=== PATIENT | male | born 1950 | race Caucasian/White ===

== ENCOUNTER 2024-02-02 14:47 | Observation (INO) | payer OTHER, SELFPAY ==
[2024-02-02 15:38] VITALS: BP 153/79; PULSE 98; RESP 18; TEMP 36.3; O2SAT 97; BMI 25.3
--- NOTE | 2024-02-02 15:38 | ED.GENADULT ---
HPI - General Adult General Chief complaint: Arrhythmia/Palpitations Stated complaint: Sent by PCP Time Seen by Provider: 02/02/24 16:54 Source: patient Mode of arrival: ambulatory Limitations: no limitations History of Present Illness HPI narrative: Patient is a 74-year-old male who presents to the emergency department for evaluation, coming from his primary care doctor's office. He had a routine appointment today, where he underwent an EKG was found to have new onset atrial fibrillation. Patient is entirely asymptomatic. He admits to no physical complaints at this time and has a completely negative review of systems. He is unable to tell me his past medical history aside from hypertension but he does admit to being on 4 medications daily of which he does not know the name of. Related Data Home Medications ?Medication ?Instructions ?Recorded ?Confirmed hydrochlorothiazide 25 mg tablet 25 mg PO DAILY 02/02/24 02/02/24 metoprolol succinate 50 mg 50 mg PO DAILY 02/02/24 02/02/24 tablet,extended release 24 hr nifedipine 60 mg tablet,extended 60 mg PO DAILY 02/02/24 02/02/24 release 24 hr potassium chloride 10 mEq 10 meq PO Q48H 02/02/24 02/02/24 tablet,extended release(part/cryst) simvastatin 40 mg tablet 40 mg PO DAILY 02/02/24 02/02/24 Allergies Allergy/AdvReac Type Severity Reaction Status Date / Time No Known Allergies Allergy Verified 02/02/24 15:41 Review of Systems Review of Systems: Yes all other systems are reviewed and are negative PMFSH Past Medical History Attestation statement: The following information was validated with the patient. Source: old records reviewed Medical History Mixed hyperlipidemia Hypertension Social History Social History Alcohol intake: current Alcohol intake frequency: 0-2 drinks per day Alcohol type: beer Smoked in Last 30 Days: No Use of substances other than those prescribed or required for medical reasons: No Advance Directives: No Advance Directives Information Provided: No Physical Exam ED Vital Signs: Vital Signs - 24 hr 02/02/24 15:38 02/02/24 17:43 02/02/24 18:51 Temperature 97.4 F 98.1 F Pulse Rate 98 107 H 88 Respiratory Rate 18 16 12 Blood Pressure 153/79 H 152/83 H 140/86 H Pulse Oximetry 97 94 95 Oxygen Delivery Method Room Air Room Air Room Air 02/02/24 20:15 Temperature 97.9 F Pulse Rate 101 H Respiratory Rate 12 Blood Pressure 134/96 H Pulse Oximetry 98 Oxygen Delivery Method Room Air BMI result Body Mass Index 25.3 Appearance: Alert.?Oriented to person, place and time. No acute distress.?Normal affect. Eyes: Pupils equal, round and reactive to light.? ENT: Pharynx normal.?? Neck: Normal inspection.? Neck supple.?? CVS: Heart sounds normal. Normal heart rate and rhythm.? Pulses normal.?? Respiratory: No respiratory distress.? Lung sounds clear to auscultation bilaterally?? Abdomen: Soft and non-tender. Normoactive bowel sounds. ? Skin: Skin warm and dry.? Normal skin color.? ?? Extremities: No lower extremity edema.? No calf ttp? Neuro: Moves all extremities spontaneously. Sensation intact bilaterally. CN II-XII intact. No focal neuro deficits. Ambulates with normal steady gait. Course Course Course Narrative: This is a Rapid Medical Exam performed in triage by Nelly Campoverde PA-C. Full HPI, ROS and PE to be performed by primary ED provider. 74 year-old M w/ PMHx HTN presenting to the ED sent in by PCP for new onset A.fib noted on EKG in the office today when he went in for regular checkup. denies sx including CP/SOB, THOMPSON, dizziness/lightheadedness PE: nontoxic, ambulating w/steady gait. HR 80-110 in triage Plan: EKG, labs ordered Reevaluation(s) Reevaluation #1: At the time of evaluation he is noted to have Varying rate up to 120s, concern for RVR at this time a low not initially noted on EKG, repeat EKG to be obtained. Patient's daughter in for a free at this time but he typically consumes approximately 12 pack of beers daily. I had a conversation with patient, he denies any history of alcohol withdrawal symptoms or withdrawal seizures. He states that he can go days without requiring drink, does not awake feeling is that he needs to drink. Time: 17:25 Reevaluation #2: Patient received 2 doses of metoprolol IV initially 2.5 mg followed by 5 mg. At rest remains rate controlled with pulse below 105, with exertion is noted to have rate going as high as 140. Discussed these findings with patient, recommend inpatient admission for rate control, he was started on Eliquis. Spoke with Dr. Cui who accepts patient for admission Time: 21:22 Medications Administered Discontinued Medications Generic Name Dose Route Start Last Admin Trade Name Dejanq PRN Reason Stop Dose Admin Apixaban 5 mg 02/02/24 20:02 02/02/24 20:14 Apixaban 5 Mg Tablet PO 02/02/24 20:03 5 mg ONCE ONE Administration Metoprolol Tartrate 2.5 mg 02/02/24 17:40 02/02/24 17:45 Metoprolol Tartrate 5 Mg/5 Ml Vial IVPUSH 02/02/24 17:41 2.5 mg ONCE ONE Administration Protocol Metoprolol Tartrate 5 mg 02/02/24 20:01 02/02/24 20:15 Metoprolol Tartrate 5 Mg/5 Ml Vial IVPUSH 02/02/24 20:02 5 mg ONCE ONE Administration Protocol Medical Decision Making Medical Decision Making MDM Narrative: Patient is a 74 old male presents emergency department from primary care office for asymptomatic new onset atrial fibrillation as per HPI. Overall he appears well, nontoxic, afebrile. He is speaking clear full sentences. No distress. Will obtain CBC to evaluate for leukocytosis/ anemia, CMP and lipase to evaluate for abnormal electrolytes /abnormal renal function/ abnormal hepatic/biliary function, EKG and troponin to evaluate for ischemia/ACS. YE Vasc score 2, will initiate anticoagulants and educated on risks associated with use. Differential Diagnosis Differential Diagnoses: The differential diagnosis associated with the presentation includes (Atrial fibrillation, atrial flutter, atrial fibrillation with RVR) Admission/Observation Consideration of admission/observation: Escalation of care including admission/observation considered (See course narrative) Consult Healthcare Provider Management of the patient was discussed with: Hospitalist (See course narrative) Lab Data [facility] Lab Attestation statement: I reviewed the patient's lab results. CBC is without leukocytosis anemia or thrombocytopenia. No electrolyte derangement. No MARY. LFTs within normal range. High sensitive troponin below detectable limits. BNP not consistent with CHF. 02/02/24 16:01 02/02/24 16:01 Labs: Lab Results 02/02/24 Range/Units 16:01 WBC 7.6 (4.8-10.8) X10*3/uL RBC 4.98 (4.60-5.80) X10*6/uL Hgb 15.4 (14.0-18.0) g/dl Hct 43.8 (42.0-52.0) % MCV 88.0 (80.0-98.0) fL MCH 30.9 (27.0-33.0) pg MCHC 35.2 (31.0-36.0) g/dl RDW 12.9 (11.0-16.0) % Plt Count 221 (160-400) X10*3/uL MPV 11.7 (9.4-12.4) fL Immature Gran % (Auto) 0.3 (0.0-0.4) % Neut % (Auto) 56.6 (45-73) % Lymph % (Auto) 28.6 (20-40) % [place] % (Auto) 10.3 (2-11) % Eos % (Auto) 3.4 (0-4) % Baso % (Auto) 0.8 (0-2) % Lymph # (Auto) 2.2 (1.2-4.9) X10*3/uL [place] # (Auto) 0.8 (0.1-1.2) X10*3/uL Eos # (Auto) 0.3 (0.0-0.4) X10*3/uL Baso # (Auto) 0.1 (0.0-0.2) X10*3/uL Abs Immat Gran (auto) 0.02 (0.00-0.03) X10*3/uL Absolute Neuts (auto) 4.3 (2.0-8.3) x10*3/uL Absolute Nucleated RBC 0.000 (0.0-0.012) X10*3/uL Nucleated RBC % (auto) 0.0 (0.0-0.2) /100WBC PT 11.7 (11.1-13.3) SEC INR 1.0 (0.9-1.1) Sodium 144 (135-145) mmol/L Potassium 4.0 (3.3-5.1) mmol/L Chloride 103 (96-108) mmol/L Carbon Dioxide 28 (22-29) mmol/L Anion Gap 17 (12-20) BUN 19 H (9-16) mg/dL Creatinine 0.87 (0.5-1.4) mg/dL Estim Creat Clear Calc 76.9 Estimated GFR > 60 Random Glucose 97 (60-115) mg/dL Calcium 10.6 H (8.4-10.2) mg/dL Magnesium 1.9 (1.6-2.6) mg/dL Total Bilirubin 0.4 (0.0-1.0) mg/dL Direct Bilirubin 0.2 (0.0-0.5) mg/dL AST 25 (5-37) U/L ALT 20 (0-40) U/L Alkaline Phosphatase 82 (39-117) U/L Troponin I High Sens < 2.7 (<3.5-35.0) ng/L B-Natriuretic Peptide 180 H (<100) pg/mL Total Protein 8.0 (6.5-8.0) g/dL Albumin 4.8 (3.5-5.0) g/dL Independent Interpretation I performed an independent interpretation of an: EKG Interpretation: Rate: 102 Rhythm:? AFib with RVR Normal QRS complex.?? ST T wave :??No ST elevation, no ST depression qTC: 443 prior studies:?02/02/24 The study has been interpreted contemporaneously by me. Independent Historian Clinical information obtained from an independent historian. History obtained from or confirmed by: Other (Daughter present who confirms history) Critical Care Time Critical Care Time Critical Care Time: Yes Total Critical Care Time: 35 Attestation: I personally attest to this critical care time spent taking care of the patient exclusive of all other billable procedures was approximately 35 minutes including initial evaluation of patient, ordering tests, metoprolol IV for rate control and re-evaluation, EKG interpretation, medical consultation, documentation, re-evaluation. Discharge Plan Discharge Clinical Impression: Atrial fibrillation with RVR Patient Disposition: Admitted As Inpatient
--- NOTE | 2024-02-02 15:39 | ECG_ITS ---
Test Reason : ARRHYTHMIA Blood Pressure : / mmHG Vent. Rate : 089 BPM Atrial Rate : 000 BPM P-R Int : 000 ms QRS Dur : 082 ms QT Int : 368 ms P-R-T Axes : 000 -09 046 degrees QTc Int : 447 ms Atrial fibrillation Nonspecific ST and T wave abnormality Abnormal ECG No previous ECGs available Referred By: Nelly Campoverde Electronically Signed By:Marito Malhotra
[2024-02-02 16:06] LABS: MANUAL DIFF FLAG NO
[2024-02-02 16:08] LABS: Basophils Absolute Auto 0.1 X10*3/uL (0.0-0.2); Basophils Percent Auto 0.8 % (0-2); Eosinophils Absolute Auto 0.3 X10*3/uL (0.0-0.4); Eosinophils Percent Auto 3.4 % (0-4); Hematocrit 43.8 % (42.0-52.0); Hemoglobin 15.4 g/dl (14.0-18.0); Imm Gran Abs Auto 0.02 X10*3/uL (0.00-0.03); Imm Gran Pct Auto 0.3 % (0.0-0.4); Lymphocytes Absolute Auto 2.2 X10*3/uL (1.2-4.9); Lymphocytes Percent Auto 28.6 % (20-40); Mean Corpuscular HGB Conc 35.2 g/dl (31.0-36.0); Mean Corpuscular Hemoglobin 30.9 pg (27.0-33.0); Mean Platelet Volume 11.7 fL (9.4-12.4); Monocytes Absolute Auto 0.8 X10*3/uL (0.1-1.2); Monocytes Percent Auto 10.3 % (2-11); Neutrophils Absolute Auto 4.3 x10*3/uL (2.0-8.3); Neutrophils Percent Auto 56.6 % (45-73); Platelet Count 221 X10*3/uL (160-400); Red Blood Count 4.98 X10*6/uL (4.60-5.80); Red Cell Distribution Width 12.9 % (11.0-16.0); White Blood Count 7.6 X10*3/uL (4.8-10.8)
[2024-02-02 16:23] LABS: Alanine Aminotransferase 20 U/L (0-40); Albumin Level 4.8 g/dL (3.5-5.0); Alkaline Phosphatase 82 U/L (39-117); Anion Gap 17 (12-20); Aspartate Amino Transferase 25 U/L (5-37); Bilirubin Direct 0.2 mg/dL (0.0-0.5); Bilirubin Total 0.4 mg/dL (0.0-1.0); Blood Urea Nitrogen 19 mg/dL (9-16); Calcium 10.6 mg/dL (8.4-10.2); Carbon Dioxide 28 mmol/L (22-29); Chloride 103 mmol/L (96-108); Creatinine Clr Calc Pharmacy 76.9; Estimated Glomerular Filt Rate > 60; Glucose Random 97 mg/dL (60-115); Magnesium 1.9 mg/dL (1.6-2.6); Sodium 144 mmol/L (135-145)
[2024-02-02 16:27] LABS: B Type Natriuretic Peptide 180 pg/mL (<100)
[2024-02-02 16:29] LABS: Prothrombin Time 11.7 SEC (11.1-13.3)
[2024-02-02 16:51] LABS: Troponin-I High Sensitivity < 2.7 ng/L (<3.5-35.0)
--- NOTE | 2024-02-02 17:24 | ECG_ITS ---
Test Reason : REPEAT Blood Pressure : / mmHG Vent. Rate : 102 BPM Atrial Rate : 000 BPM P-R Int : 000 ms QRS Dur : 074 ms QT Int : 340 ms P-R-T Axes : 000 -01 076 degrees QTc Int : 443 ms Atrial fibrillation with rapid ventricular response with premature ventricular or aberrantly conducted complexes Nonspecific ST and T wave abnormality Abnormal ECG When compared with ECG of 02-FEB-2024 15:51, Nonspecific T wave abnormality now evident in Inferior leads Nonspecific T wave abnormality, worse in Lateral leads Referred By: Iraida Michael Electronically Signed By:Marito Malhotra
[2024-02-02 17:43] VITALS: BP 152/83; PULSE 107; RESP 16; TEMP 36.7; O2SAT 94
[2024-02-02] MEDS: Metoprolol Tartrate 5 MG/5 ML VIAL 2.5 MG IVPUSH (17:45)
--- NOTE | 2024-02-02 17:50 | PC.NURSE ---
repeat ekg performed displaying afib RVR. provider notified/aware. HR fluctuating between 95-125bpm at this time. pt denies chest pain/palpitations/any sensation in chest. pt also denies feeling sob. no sob/wob noted. 18gIV placed in the right AC - 2.5ml metoprolol administered per provider order - pt remains in afib but HR decreased to between 85-100bpm at this time.
[2024-02-02 18:51] VITALS: BP 140/86; PULSE 106; PULSE 88; RESP 12; O2SAT 95
--- NOTE | 2024-02-02 19:25 | MHC.EDTECH ---
HR ambulation test, Pt walked one loop of the ER with monitor. HR 120-150 per monitor. Manual HR was 140 BPM at end of walk with Pt seated on bed.
[2024-02-02] MEDS: Apixaban 5 MG TABLET PO (20:14)
[2024-02-02 20:15] VITALS: BP 134/96; PULSE 101; RESP 12; TEMP 36.6; O2SAT 98
[2024-02-02] MEDS: Metoprolol Tartrate 5 MG/5 ML VIAL IVPUSH (20:15)
--- NOTE | 2024-02-02 21:36 | PHA.MEDREC ---
Pharmacy Consult ? Medication Reconciliation Pharmacy has completed the medication reconciliation. Patient confirmed medications based on claim history. When asking about potassium he stated the one for the sun, I do not take every day. I asked if he meant vit d, but he said it was the potassium. Berenice Goodwin, PharmD
--- NOTE | 2024-02-02 21:56 | PM.IMHP ---
History of Present Illness Date of Service: 02/02/24 Chief Complaint: Elevated heart rate This is a 74-year-old male with pertinent history of hypertension, mixed hyperlipidemia who was sent to the emergency department from PCP's office for evaluation of elevated heart rate. Patient has no symptoms at the time of my evaluation. No palpitations, shortness of breath or similar complaints in the past. He was found to be in AFib with RVR at PCP's office and sent to the ER. In the emergency department patient's heart rate upon ambulation up to 140s. He was given 2 IV doses of Lopressor and started on Eliquis. His heart rate continued to be around 140 upon ambulation and hospital medicine team consulted for admission. This is a new diagnosis for the patient and states he has never had irregular heart rhythm in the past. He is compliant with prescription home medications. Also admits daily alcohol use but denies any history of alcohol withdrawal when he is gone days without drinking. No fever, chills, chest discomfort, abdominal pain, changes in urinary or bowel habits. Review of Systems Constitutional: Constitutional: Reports no additional constitutional complaints Cardiovascular: Cardiovascular: Reports no additional cardiovascular complaints Respiratory: Respiratory: Reports no additional respiratory complaints Gastrointestinal: Gastrointestinal: Reports no additional gastrointestinal complaints Genitourinary: Genitourinary: Reports no additional male genitourinary complaints [facility] Medical History Mixed hyperlipidemia Hypertension Pertinent family history: No family history of early CAD Social History Alcohol intake: current Alcohol intake frequency: 0-2 drinks per day Alcohol type: beer Smoked in Last 30 Days: No Use of substances other than those prescribed or required for medical reasons: No Advance Directives: No Advance Directives Information Provided: No Meds Allergies Allergy/AdvReac Type Severity Reaction Status Date / Time No Known Allergies Allergy Verified 02/02/24 15:41 Home Medications ?Medication ?Instructions ?Recorded ?Confirmed ?Last Taken ?Type hydrochlorothiazide 25 mg tablet 25 mg PO DAILY 02/02/24 02/02/24 02/02/24 History metoprolol succinate 50 mg 50 mg PO DAILY 02/02/24 02/02/24 02/02/24 History tablet,extended release 24 hr nifedipine 60 mg tablet,extended 60 mg PO DAILY 02/02/24 02/02/24 02/02/24 History release 24 hr potassium chloride 10 mEq 10 meq PO Q48H 02/02/24 02/02/24 Unknown History tablet,extended release(part/cryst) simvastatin 40 mg tablet 40 mg PO DAILY 02/02/24 02/02/24 02/02/24 History Physical Exam Vital Signs and Narrative: Vital Signs: Last Vital Signs Temp 97.9 F 02/02/24 20:15 Pulse 101 H 02/02/24 20:15 Resp 12 02/02/24 20:15 BP 134/96 H 02/02/24 20:15 Pulse Ox 98 02/02/24 20:15 O2 Del Method Room Air 02/02/24 20:15 BMI result Body Mass Index 25.3 Middle-aged male lying in bed in no distress Neck supple, no JVD Irregularly irregular, S1-S2 heard Regular breath sounds bilaterally, no wheezing or crackles appreciated Abdomen soft nontender, no guarding, no rigidity Patient is awake, alert and oriented to self, place, time and person ; no focal motor deficit Psych: Normal mood No pedal edema Results Labs 02/02/24 16:01 02/02/24 16:01 Labs: Laboratory Results - last 24 hr 02/02/24 16:01 MCV 88.0 MCH 30.9 MCHC 35.2 RDW 12.9 Plt Count 221 MPV 11.7 Immature Gran % (Auto) 0.3 Neut % (Auto) 56.6 Lymph % (Auto) 28.6 [place] % (Auto) 10.3 Eos % (Auto) 3.4 Baso % (Auto) 0.8 Lymph # (Auto) 2.2 [place] # (Auto) 0.8 Eos # (Auto) 0.3 Baso # (Auto) 0.1 Abs Immat Gran (auto) 0.02 Absolute Neuts (auto) 4.3 Absolute Nucleated RBC 0.000 Nucleated RBC % (auto) 0.0 PT 11.7 INR 1.0 Anion Gap 17 Estim Creat Clear Calc 76.9 Estimated GFR > 60 Random Glucose 97 Calcium 10.6 H Magnesium 1.9 Total Bilirubin 0.4 Direct Bilirubin 0.2 AST 25 ALT 20 Alkaline Phosphatase 82 Troponin I High Sens < 2.7 B-Natriuretic Peptide 180 H Total Protein 8.0 Albumin 4.8 Assessment and Plan (1) Atrial fibrillation with RVR: Status: Acute Plan This is a 74-year-old male with pertinent history of hypertension, mixed hyperlipidemia who was sent to the emergency department from PCP's office for evaluation of elevated heart rate. #. AFib with RVR, new diagnosis: Will admit patient for observation with cardiac monitoring. Heart rate jumps up to 140s upon ambulation. Given IV Lopressor x2 in the ER. Chads Vasc score: 2, initiated on Eliquis. Obtaining TSH and consulted Cardiology. Obtaining echocardiogram. Counseled regarding limiting alcohol use #. Alcohol use disorder: Monitor CIWA and initiating thiamine #. Hypertension: Continue home antihypertensives #. Mixed hyperlipidemia: On statin Med rec pending DVT prophylaxis: Eliquis Full code Quality Stroke Does the patient have a stroke diagnosis?: No VTE Prior VTE?: No VTE Risk Level:: Medical - moderate - high VTE Device Contraindication: Treatment Not Indicated VTE Drug Contraindication: N/A - Med Ordered
[2024-02-02 22:53] VITALS: BP 126/87; PULSE 85; RESP 19
[2024-02-03 01:22] VITALS: BP 102/70; PULSE 85; RESP 15; TEMP 36.1; O2SAT 98
[2024-02-03] MEDS: 0.9 % Sodium Chloride Flush 3 ML SYRINGE IVFLUSH ×3 (01:32→15:14)
[2024-02-03 03:20] VITALS: BP 128/73; PULSE 89; RESP 18; TEMP 36.8; O2SAT 97
--- NOTE | 2024-02-03 07:00 | CA_ITS ---
Transthoracic Echocardiogram Patient (Last, First, Middle): Ang Castro, Gender: Male Date of : 1950 Age: 74 Procedure Date: 02/03/2024 Procedure Type: Transthoracic Echocardiogram Location: [facility] [place] Height: 177.8 cm Weight: 79.83 kg BSA: 1.98 m2 Heart Rate: bpm BP: 128 / 73 mmHg Manager Interface: Referring MD: Chino Cui MD Symptoms: afib new onset Study Quality: Adequate ECG Rhythm: Atrial Fibrillation Conclusions: - Normal left ventricular size and systolic function. There is mildly increased left ventricular wall thickness. The visually estimated ejection fraction is between 55-60%. - Normal right ventricular cavity size and systolic function. - The left atrium is moderately dilated. - There is mild to moderate mitral valve regurgitation. - There is moderate tricuspid valve regurgitation. Findings Left Ventricle Normal left ventricular size and systolic function. There is mildly increased left ventricular wall thickness. The visually estimated ejection fraction is between 55-60%. There is no evidence of regional wall motion abnormalities. Diastolic function is indeterminate on the basis of available data. Right Ventricle Normal right ventricular cavity size and systolic function. Atria The left atrium is moderately dilated. Aortic Valve Normal aortic valve structure and function. There is no aortic valve stenosis. There is no aortic valve regurgitation. Mitral Valve The mitral valve appears normal. There is mild to moderate mitral valve regurgitation. There is no mitral valve stenosis. Pulmonic Valve The pulmonic valve is likely normal. Tricuspid Valve Normal tricuspid valve structure. There is moderate tricuspid valve regurgitation. Normal right atrial pressure. There is no evidence of pulmonary hypertension. Great Vessels All visible segments of the aorta are normal in size. The visualized portions of the pulmonary artery and branches are normal. Venous The inferior vena cava is normal in size and collapses greater than 50% with inspiration. Pericardium/Pleural There is no evidence of pericardial effusion. Prior Study Comparison No prior study available for comparison. Measurements 2D Linear Measurements IVSd: 1.24 0.6-0.9/0.6-1.0 cm LVIDd: 4.42 3.9-5.3/4.2-5.9 cm LVIDd Index: 2.23 2.4-3.2/2.2-3.1 cm/m2 LVIDs: 2.95 2.0-3.6 cm LVPWd: 1.24 0.7-1.1 cm LA Diam: 4.70 2.7-3.8/3.0-4.0 cm LAIDs Index: 2.37 1.5-2.3 cm/m2 LV Mass: 251.84 67-162/88-224 g LV Mass Index: 127.19 43-95/49-115 g/m2 LVOT Diam: 2.10 3.0+(-)1.3 cm Mitral Valve MV Pk E: 0.80 MV Decel Time: 86.00 E'Lateral: 15.60 E'Medial: 12.00 E/E' Med: 6.60 E/E' Lat: 5.10 PHT: 25.00 MVA PHT: 8.80 Decel Gray: 9.28 Aortic Valve AoV Pk Luis A: 1.46 AoV Mn Lui Sa: 0.89 AoV VTI: 0.24 AoV Pk Grad: 9.00 Aov Mn Grad: 4.00 WILMER Cont.VTI: 1.75 LVOT LVOT Pk Luis A: 0.72 LVOT Mn Luis A: 0.43 LVOT VTI: 0.12 LVOT Pk Grad: 2.00 LVOT Mn Grad: 1.00 LVOT Diam: 2.10 LVOT Area: 3.46 Diastolic Function MV Pk E: 0.80 E'Medial: 12.00 E/E' Med: 6.60 E' Laterial: 15.60 E/E' Lat: 5.10 Right Ventricle TAPSE (mm): 20.30 TVS' Luis A: 15.10 Tricuspid Valve TR Pk Luis A: 2.57 TR Pk Grad: 26.00 RA Press: 3.00 RVSP: 29.00 Great Vessels Aorta Sinus of Valsalva: 3.30 2.0-3.5 cm Ao Asc: 3.00 2.1-3.4 cm Pulmonary Valve PV Pk Luis A: 1.05 Peak PV Grad: 4.00 Updated in Other Vendor System with Status of Final Marito Malhotra MD electronically signed on 02/03/2024 4:32:48 PM with status of Final
[2024-02-03 07:03] LABS: Hematocrit 47.1 % (42.0-52.0); Hemoglobin 16.3 g/dl (14.0-18.0); Mean Corpuscular HGB Conc 34.6 g/dl (31.0-36.0); Mean Corpuscular Hemoglobin 30.3 pg (27.0-33.0); Mean Corpuscular Volume 87.5 fL (80.0-98.0); Mean Platelet Volume 11.7 fL (9.4-12.4); Platelet Count 230 X10*3/uL (160-400); Red Blood Count 5.38 X10*6/uL (4.60-5.80); White Blood Count 9.5 X10*3/uL (4.8-10.8)
[2024-02-03 07:21] LABS: Anion Gap 16 (12-20); Blood Urea Nitrogen 14 mg/dL (9-16); Calcium 10.2 mg/dL (8.4-10.2); Carbon Dioxide 27 mmol/L (22-29); Chloride 104 mmol/L (96-108); Estimated Glomerular Filt Rate > 60; Glucose Random 118 mg/dL (60-115); Potassium 3.8 mmol/L (3.3-5.1); Sodium 143 mmol/L (135-145)
[2024-02-03 07:27] VITALS: BP 121/85; PULSE 89; RESP 18; TEMP 36.2; O2SAT 98
[2024-02-03 07:37] LABS: Thyroid Stimulating Hormone 1.62 uIU/mL (0.32-4.0)
[2024-02-03] MEDS: Apixaban 5 MG TABLET PO ×2 (07:56→19:48)
[2024-02-03] MEDS: Thiamine HCL 100 MG TABLET PO (07:56)
[2024-02-03] MEDS: NIFEdipine ER 60 MG TAB.ER.24 PO (10:38)
[2024-02-03] MEDS: Metoprolol Succinate ER 50 MG TAB.ER.24H PO (10:39)
--- NOTE | 2024-02-03 10:54 | P.CONCA_ITS ---
History of Present Illness History of Present Illness Date of Service: 02/03/24 Requesting physician: Adeola Fried Chief complaint: Atrial fibrillation Narrative: 74 year gentleman who is presenting from primary care physician's office with tachycardia and AFib with RVR. He said he went for a routine visit and was noticed to have AFib and was sent to the emergency department. He denied any palpitations, chest pain, shortness of breath or fatigue. He drinks 6 beers per day for last 40 years. He has background of hypertension and has been taking hydrochlorothiazide, metoprolol succinate 50 mg daily and nifedipine. He also has hyperlipidemia and is taking simvastatin 40 mg. Denying any orthopnea or PND. Clinically not in heart failure. [facility] Past Medical History Medical History Mixed hyperlipidemia Hypertension Social History Social History Alcohol intake: current Alcohol intake frequency: 0-2 drinks per day Alcohol type: beer Patient Tobacco Use Status: Never used Tobacco Smoked in Last 30 Days: No Use of substances other than those prescribed or required for medical reasons: No Currently Displaying Signs/Symptoms of Drug Intoxication Withdrawal: No Advance Directives: No Advance Directives Information Provided: No Nutrition Risks: No Nutritional Risk service: No Meds Allergies Allergy/AdvReac Type Severity Reaction Status Date / Time No Known Allergies Allergy Verified 02/02/24 15:41 Active Medications: Current Medications Acetaminophen (Acetaminophen 325 Mg Tablet) 650 mg PO Q6H PRN PRN Reason: Pain, Mild (Pain Scale 1-3), fever or headache Apixaban (Apixaban 5 Mg Tablet) 5 mg PO BID [facility] Last Admin: 02/03/24 07:56 Dose: 5 mg Atorvastatin Calcium (Atorvastatin Calcium 20 Mg Tablet) 20 mg PO DAILY [facility] Calcium Carbonate (Calcium Carbonate 750 Mg Tab.Chew) 750 mg PO Q4H PRN PRN Reason: Heartburn Magnesium Hydroxide (Milk Of Magnesia 30 Ml Oral.Susp) 30 ml PO DAILY PRN PRN Reason: Constipation Melatonin (Melatonin 3 Mg Tablet) 6 mg PO BEDTIME PRN PRN Reason: Insomnia Metoprolol Succinate (Metoprolol Succinate Er 50 Mg Tab.Er.24h) 50 mg PO DAILY [facility]; Protocol Last Admin: 02/03/24 10:39 Dose: 50 mg Nifedipine (Nifedipine Er 60 Mg Tab.Er.24) 60 mg PO DAILY [facility]; Protocol Last Admin: 02/03/24 10:38 Dose: 60 mg Sodium Chloride (0.9 % Sodium Chloride Flush 3 Ml Syringe) 3 ml IVFLUSH QSHIFT [facility] Last Admin: 02/03/24 07:56 Dose: 3 ml Thiamine HCl (Thiamine Hcl 100 Mg Tablet) 100 mg PO DAILY [facility] Last Admin: 02/03/24 07:56 Dose: 100 mg Home Medications ?Medication ?Instructions ?Recorded ?Confirmed ?Last Taken ?Type hydrochlorothiazide 25 mg tablet 25 mg PO DAILY 02/02/24 02/02/24 02/02/24 History metoprolol succinate 50 mg 50 mg PO DAILY 02/02/24 02/02/24 02/02/24 History tablet,extended release 24 hr nifedipine 60 mg tablet,extended 60 mg PO DAILY 02/02/24 02/02/24 02/02/24 History release 24 hr potassium chloride 10 mEq 10 meq PO Q48H 02/02/24 02/02/24 Unknown History tablet,extended release(part/cryst) simvastatin 40 mg tablet 40 mg PO DAILY 02/02/24 02/02/24 02/02/24 History Physical Exam 2 Vital Signs: Vital Signs: Last Vital Signs Temp 97.1 F 02/03/24 07:27 Pulse 89 02/03/24 07:27 Resp 18 02/03/24 07:27 BP 121/85 02/03/24 07:27 Pulse Ox 98 02/03/24 07:27 O2 Del Method Room Air 02/03/24 07:27 BMI result Body Mass Index 25.3 GENERAL APPEARANCE: in no acute distress, pleasant. NECK: no carotid bruit, no jugular venous distention. SKIN: no suspicious lesions, warm and dry. HEART: no murmurs, irregular rate and rhythm. LUNGS: clear to auscultation bilaterally. ABDOMEN: soft, nontender. EXTREMITIES: no edema. PERIPHERAL PULSES: equal. NEUROLOGIC: No gross deficits, AAO X 3 Objective Labs and Meds 02/03/24 06:29 02/03/24 06:29 Lab results: Laboratory Results - last 24 hr 02/02/24 02/03/24 16:01 06:29 WBC 7.6 9.5 RBC 4.98 5.38 Hgb 15.4 16.3 Hct 43.8 47.1 MCV 88.0 87.5 MCH 30.9 30.3 MCHC 35.2 34.6 RDW 12.9 13.0 Plt Count 221 230 MPV 11.7 11.7 Immature Gran % (Auto) 0.3 Neut % (Auto) 56.6 Lymph % (Auto) 28.6 [place] % (Auto) 10.3 Eos % (Auto) 3.4 Baso % (Auto) 0.8 Lymph # (Auto) 2.2 [place] # (Auto) 0.8 Eos # (Auto) 0.3 Baso # (Auto) 0.1 Abs Immat Gran (auto) 0.02 Absolute Neuts (auto) 4.3 Absolute Nucleated RBC 0.000 0.000 Nucleated RBC % (auto) 0.0 0.0 PT 11.7 INR 1.0 Sodium 144 143 Potassium 4.0 3.8 Chloride 103 104 Carbon Dioxide 28 27 Anion Gap 17 16 BUN 19 H 14 Creatinine 0.87 0.76 Estim Creat Clear Calc 76.9 88.0 Estimated GFR > 60 > 60 Random Glucose 97 118 H Calcium 10.6 H 10.2 Magnesium 1.9 Total Bilirubin 0.4 Direct Bilirubin 0.2 AST 25 ALT 20 Alkaline Phosphatase 82 Troponin I High Sens < 2.7 B-Natriuretic Peptide 180 H Total Protein 8.0 Albumin 4.8 TSH 1.62 Assessment and Plan (1) Atrial fibrillation with RVR: Status: Acute (2) Hypertension: Status: Acute Plan Pleasant 74 year gentleman presenting for primary care physician's office with atrial fibrillation with rapid ventricular response. He is currently rate controlled with metoprolol succinate. Double the dose to 50 mg twice a day. Agree with apixaban 5 mg twice a day. Clinically does not have any symptoms. If echocardiography does not show any cardiomyopathy then he can be discharged home and we can discuss cardioversion as outpatient. Obviously if there is cardiomyopathy then we may have to consider DEVI cardioversion on which will happen on Tuesday. Complete abstinence from alcohol. Thank you for allowing me to participate in the care of your patient. Please feel free to contact me if you have any questions. Procedures Date of Service Date of Service: 02/03/24
[2024-02-03 11:22] VITALS: BP 134/90; PULSE 97; RESP 18; TEMP 36.5; O2SAT 97
--- NOTE | 2024-02-03 14:22 | P.PNIM_ITS ---
Subjective Subjective Date of Service: 02/03/24 Interval History: Seen and examined this morning Follow-up for atrial fibrillation with rapid ventricular response Patient denies any chest pain, palpitations, shortness of breath, dizziness Review of Systems Review of Systems: Yes all other systems are reviewed and are negative Constitutional Constitutional: Denies fever(s) ENT Ears, Nose, Mouth, and Throat: Denies dizziness Cardiovascular Cardiovascular: Denies chest pain and Denies palpitations Neurologic Neurologic: Denies dizziness Endocrine Endocrine: Denies palpitations Physical Exam 2 Vital Signs: Vital Signs: Last Vital Signs Temp 97.7 F 02/03/24 11:22 Pulse 97 02/03/24 11:22 Resp 18 02/03/24 11:22 BP 134/90 H 02/03/24 11:22 Pulse Ox 97 02/03/24 11:22 O2 Del Method Room Air 02/03/24 11:22 BMI result Body Mass Index 25.3 Const: General: cooperative, comfortable, no acute distress, alert and awake Nutritional Appearance: average body habitus Orientation/consciousness: p atient oriented x3 Resp: Effort & Inspection: normal respiratory effort and able to speak in complete sentences Auscultation: clear to auscultation bilaterally Cardio: Other: irregular, tachycardic GI: Palpation (GI): Soft to palpation Neuro: General: patient oriented x3 and moves all extremities Extrem: General: Yes no pedal edema Objective Data Active Medications Acetaminophen (Acetaminophen 325 Mg Tablet) 650 mg PO Q6H PRN PRN Reason: Pain, Mild (Pain Scale 1-3), fever or headache Apixaban (Apixaban 5 Mg Tablet) 5 mg PO BID [facility] Last Admin: 02/03/24 07:56 Dose: 5 mg Documented By: ANDRES Atorvastatin Calcium (Atorvastatin Calcium 20 Mg Tablet) 20 mg PO DAILY [facility] Calcium Carbonate (Calcium Carbonate 750 Mg Tab.Chew) 750 mg PO Q4H PRN PRN Reason: Heartburn Magnesium Hydroxide (Milk Of Magnesia 30 Ml Oral.Susp) 30 ml PO DAILY PRN PRN Reason: Constipation Melatonin (Melatonin 3 Mg Tablet) 6 mg PO BEDTIME PRN PRN Reason: Insomnia Metoprolol Succinate (Metoprolol Succinate Er 50 Mg Tab.Er.24h) 50 mg PO DAILY [facility]; Protocol Last Admin: 02/03/24 10:39 Dose: 50 mg Documented By: ANDRES Metoprolol Succinate (Metoprolol Succinate Er 25 Mg Tab.Er.24h) 25 mg PO ONCE ONE; Protocol Stop: 02/03/24 14:21 Nifedipine (Nifedipine Er 60 Mg Tab.Er.24) 60 mg PO DAILY [facility]; Protocol Last Admin: 02/03/24 10:38 Dose: 60 mg Documented By: ANDRES Sodium Chloride (0.9 % Sodium Chloride Flush 3 Ml Syringe) 3 ml IVFLUSH QSHIFT [facility] Last Admin: 02/03/24 07:56 Dose: 3 ml Documented By: ANDRES Thiamine HCl (Thiamine Hcl 100 Mg Tablet) 100 mg PO DAILY [facility] Last Admin: 02/03/24 07:56 Dose: 100 mg Documented By: ANDRES Labs 02/03/24 06:29 02/03/24 06:29 Labs: Laboratory Results - last 24 hr 02/02/24 02/03/24 16:01 06:29 MCV 88.0 87.5 MCH 30.9 30.3 MCHC 35.2 34.6 RDW 12.9 13.0 Plt Count 221 230 MPV 11.7 11.7 Immature Gran % (Auto) 0.3 Neut % (Auto) 56.6 Lymph % (Auto) 28.6 [place] % (Auto) 10.3 Eos % (Auto) 3.4 Baso % (Auto) 0.8 Lymph # (Auto) 2.2 [place] # (Auto) 0.8 Eos # (Auto) 0.3 Baso # (Auto) 0.1 Abs Immat Gran (auto) 0.02 Absolute Neuts (auto) 4.3 Absolute Nucleated RBC 0.000 0.000 Nucleated RBC % (auto) 0.0 0.0 PT 11.7 INR 1.0 Anion Gap 17 16 Estim Creat Clear Calc 76.9 88.0 Estimated GFR > 60 > 60 Random Glucose 97 118 H Calcium 10.6 H 10.2 Magnesium 1.9 Total Bilirubin 0.4 Direct Bilirubin 0.2 AST 25 ALT 20 Alkaline Phosphatase 82 Troponin I High Sens < 2.7 B-Natriuretic Peptide 180 H Total Protein 8.0 Albumin 4.8 TSH 1.62 Assessment and Plan (1) Atrial fibrillation with RVR: Status: Acute Plan This is a 74-year-old male with pertinent history of hypertension, mixed hyperlipidemia who was sent to the emergency department from PCP's office for evaluation of elevated heart rate. #. AFib with RVR, new diagnosis: Heart rate jumps up to 140s upon ambulation Given IV Lopressor x2 in the ER Chads Vasc score: 2, initiated on Eliquis TSH wnl Will increase home dose of Toprol-XL consulted Cardiology echocardiogram penidng Counseled regarding limiting alcohol use #. Alcohol use disorder: Monitor CIWA and initiating thiamine Scoring low on CIWA, does not appear to be in alcohol withdrawal at this time #. Hypertension: Increase dose of Toprol-XL as above Continue nifedipine Hold hydrochlorothiazide #. Mixed hyperlipidemia: Continue statin DVT prophylaxis: Eliquis Full code Quality Stroke Does the patient have a stroke diagnosis?: No VTE Prior VTE?: No VTE Risk Level:: Medical - moderate - high VTE Device Contraindication: Treatment Not Indicated VTE Drug Contraindication: N/A - Med Ordered
--- NOTE | 2024-02-03 14:27 | MHC.CM.PN ---
JOEY 02/02. Pt self-care, lives at home with his nephew. Pts daughter will transport him home. New HCP completed, now on file. PCP: Dr. Zuleyma Dennis
[2024-02-03] MEDS: Metoprolol Succinate ER 25 MG TAB.ER.24H PO (15:13)
[2024-02-03 16:00] VITALS: BP 113/77; PULSE 85; RESP 14; TEMP 36.8; O2SAT 93
[2024-02-03 20:00] VITALS: BP 101/76; PULSE 88; RESP 20; TEMP 36.8; O2SAT 93
[2024-02-04] VITALS: BP 107/66; PULSE 88; RESP 18; TEMP 36.8; O2SAT 97
[2024-02-04] MEDS: 0.9 % Sodium Chloride Flush 3 ML SYRINGE IVFLUSH ×2 (00:42→09:08)
[2024-02-04 04:00] VITALS: BP 102/71; PULSE 83; RESP 18; TEMP 37; O2SAT 97
[2024-02-04 08:00] VITALS: BP 114/81; PULSE 97; RESP 16; TEMP 36.1; O2SAT 95
[2024-02-04] MEDS: Apixaban 5 MG TABLET PO (09:05)
[2024-02-04 09:06] VITALS: BP 114/81; PULSE 97
[2024-02-04] MEDS: Metoprolol Succinate ER 50 MG TAB.ER.24H PO (09:06)
[2024-02-04] MEDS: Atorvastatin Calcium 20 MG TABLET PO (09:06)
[2024-02-04] MEDS: Thiamine HCL 100 MG TABLET PO (09:06)
[2024-02-04] MEDS: NIFEdipine ER 60 MG TAB.ER.24 PO (09:06)
--- NOTE | 2024-02-04 11:58 | PM.PNCARD ---
Subjective Subjective Date of Service: 02/04/24 Interval history: Seen examined at bedside. Continues to be in atrial fibrillation. With ambulation his heart rates are fast in 140s. At rest his heart rate is okay. He is saying he has not feeling any withdrawal symptoms from alcohol currently. Physical Exam Vital Signs: Last Vital Signs Temp 96.9 F 02/04/24 08:00 Pulse 97 02/04/24 09:06 Resp 16 02/04/24 08:00 BP 114/81 02/04/24 09:06 Pulse Ox 95 02/04/24 08:00 O2 Del Method Room Air 02/04/24 08:00 BMI result Body Mass Index 25.3 GENERAL APPEARANCE: in no acute distress, pleasant. NECK: no carotid bruit, no jugular venous distention. SKIN: no suspicious lesions, warm and dry. HEART: no murmurs, irregular rate and rhythm. LUNGS: clear to auscultation bilaterally. ABDOMEN: soft, nontender. EXTREMITIES: no edema. PERIPHERAL PULSES: equal. NEUROLOGIC: No gross deficits, AAO X 3 Objective Labs and Meds 02/03/24 06:29 02/03/24 06:29 Progress Note: A&P Assessment and plan (1) Atrial fibrillation with RVR: Status: Acute Plan Pleasant 74 year gentleman with new diagnosis of atrial fibrillation with rapid ventricular response. He is on metoprolol 50 mg twice a day. Can change to Toprol-XL 100 mg daily. Add digoxin 125 mcg 3 times a week. Continue Eliquis for anticoagulation. He is completely asymptomatic. His ECHO showing preserved LV function. He does have [id number] mitral regurgitation and moderate tricuspid valve regurgitation. There is moderate left atrial dilatation. I think he will benefit from outpatient cardioversion which we will plan. We discussed about complete abstinence from alcohol. Thank you for allowing me to participate in the care of your patient. Please feel free to contact me if you have any questions. Time Spent With Patient Time: Total time managing care of this patient today ____ minutes. Progress Note: Quality Stroke Does the patient have a stroke diagnosis?: No Procedures Date of Service Date of Service: 02/04/24
[2024-02-04 12:00] VITALS: BP 106/75; PULSE 80; RESP 16; TEMP 36.4; O2SAT 95
--- NOTE | 2024-02-04 12:37 | PM.DS ---
DS: Providers Provider Date of Service: 02/04/24 Date of admission: 02/02/24 21:53 Primary care physician: Zuleyma Dennis MD Consults: 02/02/24 21:53 Consult to Cardiology Routine Consulting Provider: [facility] Reason for consultation: new onset afib with rvr DS: Diagnosis Discharge Diagnosis (1) Atrial fibrillation with RVR: Status: Acute DS: Summary Hospital Course Hospital Course: History and physical as per admitting provider. This is a 74-year-old male with pertinent history of hypertension, mixed hyperlipidemia who was sent to the emergency department from PCP's office for evaluation of elevated heart rate. Patient has no symptoms at the time of my evaluation. No palpitations, shortness of breath or similar complaints in the past. He was found to be in AFib with RVR at PCP's office and sent to the ER. In the emergency department patient's heart rate upon ambulation up to 140s. He was given 2 IV doses of Lopressor and started on Eliquis. His heart rate continued to be around 140 upon ambulation and hospital medicine team consulted for admission. This is a new diagnosis for the patient and states he has never had irregular heart rhythm in the past. He is compliant with prescription home medications. Also admits daily alcohol use but denies any history of alcohol withdrawal when he is gone days without drinking. No fever, chills, chest discomfort, abdominal pain, changes in urinary or bowel habits. 74-year-old man treated for atrial fibrillation with rapid ventricular response which is a new diagnosis. Patient initially was given IV Lopressor. Manny Vasc score of 2 and was initiated on Eliquis. TSH within normal range. Seen evaluated by Cardiology, echocardiogram with normal EF. Patient is started on metoprolol XL 100 mg daily, digoxin load of 250 mcg then 125 mg daily. He was counseled on the importance of limiting alcohol use which could cause further exacerbations. 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 Plan is for discharge home and patient is in agreement with this. Alcohol use disorder. Patient treated with thiamine, on CIWA scale but scored low and did not appear to be in alcohol withdrawal during hospitalization Hypertension continue nifedipine and hydrochlorothiazide Hyperlipidemia. Continue statin Time Attestation Discharge Coordination Time (in mins): 35 Quality: Safe Use of Opioids Does Pt have an Active Cancer Diagnosis on the Problem List?: No Quality: Stroke Does the patient have a stroke diagnosis?: No Physical Exam Vital Signs: Vital Signs: Last Vital Signs Temp 97.5 F 02/04/24 12:00 Pulse 80 02/04/24 12:00 Resp 16 02/04/24 12:00 BP 106/75 02/04/24 12:00 Pulse Ox 95 02/04/24 12:00 O2 Del Method Room Air 02/04/24 12:00 BMI result Body Mass Index 25.3 Appearing in no acute distress head is normocephalic atraumatic eyes pupils are PERRLA sclera is anicteric mouth throat mucous membranes are intact and moist neck is supple no lymphadenopathy, no JVD noted lung sounds are clear to auscultation heart regular rate rhythm, clear S1, S2 positive bowel sounds, abdomen is soft, nontender neuro patient is alert x3, no focal deficits Discharge Plan Discharge Anticipated Discharge Date/Time: 02/04/24 12:20 Patient Disposition: Home, Self-Care Discharge Diagnosis: Atrial fibrillation Referrals: Zuleyma Dennis MD [Primary Care Provider] - 1 Week Discharge Medications: New metoprolol succinate 100 mg Tablet Extended Release 24 Hr 100 mg PO DAILY Qty: 90 0RF Protocol: Hold for SBP/HR < HOLD for SBP < : 90 HOLD for HR < : 60 Eliquis 5 mg Tablet 5 mg PO BID Qty: 180 0RF digoxin 125 mcg (0.125 mg) tablet 125 mcg PO .every other day Qty: 36 0RF Rx Instructions: Tuesday, Tuesday and Tuesday Continued simvastatin 40 mg tablet 40 mg PO DAILY nifedipine 60 mg tablet extended release 24hr 60 mg PO DAILY hydrochlorothiazide 25 mg tablet 25 mg PO DAILY potassium chloride 10 mEq tablet,ER particles/crystals 10 meq PO Q48H Discontinued metoprolol succinate 50 mg tablet extended release 24 hr 50 mg PO DAILY Discharge Orders: Discharge Order (Routine); Ordered 02/04/24 Ordered By: Ashley Hernandez Diet: Advance to usual diet Activity on Discharge: As tolerated Stand Alone Forms: Patient Portal Discharge page Print Language: Urdu Care Plan Goals: Follow-up with cardiology in 1 week You have been started on 3 new medications, metoprolol xl 100 mg daily and digoxin 125 mg every other day, Tuesday, Tuesday and Tuesday and Eliquis 5 mg twice daily Health Concerns: Atrial fibrillation with rapid ventricular response Plan of Treatment: Follow-up with primary care provider as needed Take all medications as prescribed Assessment: See discharge summary
--- NOTE | 2024-02-04 12:38 | MHC.CM.PN ---
Patient has been medically cleared for dc to home today, self care.
[2024-02-04 13:11] VITALS: BP 106/75; PULSE 80
[2024-02-04] MEDS: Metoprolol Succinate ER 100 MG TAB.ER.24H PO (13:11)
[2024-02-04] MEDS: Digoxin 0.25 MG TABLET PO (13:12)
== END 2024-02-04 14:03 | disposition home or self-care (01) ==
LOC: HO.ED 18:03 → HO.EDOVER 22:16 → HO.IMC 23:15
PROVIDERS: Physician Assistant; Admitting Provider Student in an Organized Health Care Education/Training Program; Emergency Provider Internal Medicine; PCP Internal Medicine; Visit Provider Nurse Practitioner Acute Care
DX: I48.20 Chronic atrial fibrillation, unspecified (principal); I10 Essential (primary) hypertension; I49.9 Cardiac arrhythmia, unspecified; E78.2 Mixed hyperlipidemia; F10.90 Alcohol use, unspecified, uncomplicated; R00.0 Tachycardia, unspecified
CPT/HCPCS: 36415; 80048; 80076; 83735; 83880; 84443; 84484; 85025; 85027; 85610; 93005; 93306; 96374; 96375; 99222; 99285; Q9957

== ENCOUNTER → 2024-02-02 17:44 | Outpatient (BNV) | payer OTHER, SELFPAY | PROVIDERS: Emergency Provider Internal Medicine; PCP Internal Medicine; Visit Provider Student in an Organized Health Care Education/Training Program | DX: I48.91 Unspecified atrial fibrillation (principal) | CPT/HCPCS: 99222; 99232; 99239 ==

== ENCOUNTER 2024-02-02 21:53 | Outpatient (BNV) | payer OTHER, SELFPAY | END 2024-02-03 07:00 | PROVIDERS: Admitting Provider Student in an Organized Health Care Education/Training Program; Emergency Provider Internal Medicine; PCP Internal Medicine; Visit Provider Internal Medicine Cardiovascular Disease | DX: I34.0 Nonrheumatic mitral (valve) insufficiency (principal); I36.1 Nonrheumatic tricuspid (valve) insufficiency | CPT/HCPCS: 93306 ==

== ENCOUNTER → 2024-02-02 21:53 | Outpatient (BNV) | payer OTHER, SELFPAY | PROVIDERS: Admitting Provider Student in an Organized Health Care Education/Training Program; Emergency Provider Internal Medicine; PCP Internal Medicine; Visit Provider Internal Medicine Cardiovascular Disease | DX: R94.31 Abnormal electrocardiogram [ECG] [EKG] (principal) | CPT/HCPCS: 93010; 99223; 99233 ==

== ENCOUNTER 2024-03-08 13:19 | Outpatient (AMB) | payer OTHER, SELFPAY ==
[2024-03-08 13:35] VITALS: BP 110/58; PULSE 83; BMI 23.7
--- NOTE | 2024-03-08 13:35 | A.OFFVIS_ITS ---
Vital Signs 03/08/24 13:35 Height 5 ft 10 in Weight 165 lb 5.547 oz BMI 23.7 BP 110/58 L Blood Pressure Location Lt brachial Pulse 83 Pulse Source Pulse Oximeter Intake Visit Reasons: [facility] F/UP Allergies No Known Allergies Allergy (Verified 02/02/24 15:41) Medication List - Last Reconciled 03/08/24 by Shanique Martinez NP apixaban (Eliquis) 5 mg PO BID digoxin 125 mcg PO .every other day hydrochlorothiazide 25 mg PO DAILY metoprolol succinate ER 100 mg See Protocol PO DAILY nifedipine ER 60 mg PO DAILY potassium chloride ER 10 mEq PO Q48H simvastatin 40 mg PO DAILY HPI Comments Details: 74-year-old male presents today for a follow-up after discharge. He was sent to the emergency room from his primary care office due to irregular heart rate. Since discharge he has stopped drinking any alcohol. He feels overall good. He reports he has no chest pains, dizziness, shortness of breath, swelling, bleeding, or orthopnea. Prior to discharge he was riding his bike often. He reports he has been taking his medications faithfully. [facility] Medical History (Updated 03/09/24 @ 15:41 by Shanique Martinez NP) Atrial fibrillation Mixed hyperlipidemia Hypertension Social History Alcohol intake: current Alcohol intake frequency: 0-2 drinks per day Alcohol type: beer Patient Tobacco Use Status: Never used Tobacco service: No Review of Systems Const Denies weakness ENT Denies dizziness Card Denies chest pain, Denies chest pain with activity, Denies syncope, Denies rapid heart rate, Denies pedal edema, Denies edema, Denies leg edema, Denies lightheadedness, Denies palpitations, Denies dyspnea, Denies dyspnea on exertion and Denies orthopnea Resp Denies cough, Denies dyspnea and Denies dyspnea on exertion GI Denies hematochezia and Denies change in stool character Musc Denies abnormal gait, Denies muscle cramps, Denies muscle weakness, Denies numbness, Denies radiating pain into limb and Denies tingling Neuro Denies abnormal gait, Denies dizziness, Denies syncope, Denies numbness, Denies tingling and Denies weakness Endo Denies palpitations Physical Exam Vital Signs: Last Vital Signs Pulse 83 03/08/24 13:35 BP 110/58 L 03/08/24 13:35 BMI result Body Mass Index 23.7 Const General: healthy appearing and no acute distress Orientation/consciousness: patient oriented x3 HEENT Head: Yes normal to inspection Eyes General: appearance normal, both eyes and all related structures Neck Neck: Yes normal visual inspection Chest Chest palpation & inspection: normal inspection of the chest Resp Effort & Inspection: normal respiratory effort Auscultation: clear to auscultation bilaterally Cardio Jugular venous distension: no JVD Palpation: normal PMI Rate: regular rate Rhythm: abnormal rhythm (atrial fibrillation ) Heart sounds: S1 normal heart sound present, S2 normal heart sound present, no click, no gallops, no murmurs and no rubs GI Inspection: Yes normal to inspection Palpation (GI): Soft to palpation Skin General skin exam: no rashes or lesions noted Neuro General: patient oriented x3 Extrem General: Yes normal to inspection Psych Appearance: grossly normal Office Procedures EKG Details: EKG today. Atrial Fibrillation with premature ventricular or aberrantly conducted complexes. Nonspecific ST and T wave abnormalities. Rate 88m bpm. QRS 78 ms. [id number], Complete Assessment & Plan Assessment & Plan (1) Atrial fibrillation: Code(s): I48.91 - Unspecified atrial fibrillation Category: Medical Plan Patient has returned to atrial fibrillation. He has quit drinking since discharge. He is completely asymptomatic with his artial fibrillation. Will set up caridovesion. Follow-up after. Reviewed signs and symptoms of bleeding. Reviewed triggers for atrial fibrillation. Currently on eliquis 5mg for anticoagulation and metoprolol and digoxin for rate. Medication compliance discussed in detail. Patient reports understanding. Medications: Refilled digoxin Tuesday, Tuesday and Tuesday 125 mcg PO .every other day 36 tabs 3RF Coding Level of Care Code Est Pt Level 3 (18335) Diagnoses Atrial fibrillation I48.91 CPT Codes EKG - CPT: 23429-[id number], Complete ([id number])
== END 2024-03-08 14:02 | disposition home or self-care (01) ==
PROVIDERS: PCP Internal Medicine; Visit Provider Nurse Practitioner
DX: I48.91 Unspecified atrial fibrillation (principal)
CPT/HCPCS: 93010; 99213

== ENCOUNTER → 2024-03-08 13:19 | Outpatient (BNVA) | payer OTHER, SELFPAY | PROVIDERS: PCP Internal Medicine; Visit Provider Nurse Practitioner | DX: I48.91 Unspecified atrial fibrillation (principal) | CPT/HCPCS: 93005; 99212 ==

== ENCOUNTER 2024-03-15 11:51 | Day surgery (SDC) | payer OTHER, SELFPAY ==
--- NOTE | 2024-03-15 | ECG_ITS ---
Test Reason : s/p cardioversion Blood Pressure : / mmHG Vent. Rate : 079 BPM Atrial Rate : 068 BPM P-R Int : 174 ms QRS Dur : 078 ms QT Int : 428 ms P-R-T Axes : 080 -08 031 degrees QTc Int : 490 ms Sinus rhythm with Premature supraventricular complexes and with occasional , and consecutive Premature ventricular complexes Nonspecific ST abnormality Prolonged QT Abnormal ECG When compared with ECG of 02-FEB-2024 17:33, Sinus rhythm has replaced Atrial fibrillation Nonspecific T wave abnormality, improved in Inferior leads Nonspecific T wave abnormality no longer evident in Lateral leads Referred By: Marito Malhotra Electronically Signed By:Marito Malhotra
[2024-03-15 12:19] VITALS: BP 118/74; PULSE 81; RESP 18; TEMP 36.7; O2SAT 97; BMI 24.5
[2024-03-15] MEDS: 0.9 % Sodium Chloride 1,000 ML 50 ML IVCONT (12:32)
--- NOTE | 2024-03-15 13:25 | HO.ANESPROP2 ---
Documented by User: Wen Schuler NP 03/13/24 14:55 HPI - Anesthesia Eval Consult details Narrative: 74yo M for Cardioversion Eliquis for afib [facility] Active Problems Active Problems: All Active Problems Atrial fibrillation (Acute) Atrial fibrillation with RVR (Acute) Mixed hyperlipidemia (Acute) Past Medical History Medical History (Updated 03/09/24 @ 15:41 by Shanique Martinez NP) Atrial fibrillation Mixed hyperlipidemia Hypertension Social History Social History Alcohol intake: current Alcohol intake frequency: 0-2 drinks per day Alcohol type: beer Patient Tobacco Use Status: Never used Tobacco Use of substances other than those prescribed or required for medical reasons: No Are you DNR?: No Advance Directives: No Advance Directives Information Provided: Yes service: No Meds Allergies Allergy/AdvReac Type Severity Reaction Status Date / Time No Known Allergies Allergy Verified 03/15/24 12:15 Home Medications ?Medication ?Instructions ?Recorded ?Confirmed ?Last Taken ?Type hydrochlorothiazide 25 mg tablet 25 mg PO DAILY 02/02/24 03/15/24 03/15/24 History nifedipine 60 mg tablet,extended 60 mg PO DAILY 02/02/24 03/15/24 03/15/24 History release 24 hr simvastatin 40 mg tablet 40 mg PO DAILY 02/02/24 03/15/24 03/15/24 History Exam Pertinent Lab Results Pertinent Lab Results: Laboratory Tests 02/03/24 06:29 WBC 9.5 Hgb 16.3 Hct 47.1 Plt Count 230 Sodium 143 Potassium 3.8 Chloride 104 Carbon Dioxide 27 BUN 14 Creatinine 0.76 Narrative Narrative: EKG 02/2024 Atrial Fibrillation with premature ventricular or aberrantly conducted complexes. Nonspecific ST and T wave abnormalities. Rate 88m bpm. QRS 78 ms. Assessment and Plan Assessment Anesthesia Assessment: Chart Reviewed Documented by User: Karissa Rogers DO 03/15/24 13:35 [facility] Past Medical History Medical History (Updated 03/09/24 @ 15:41 by Shanique Martinez NP) Atrial fibrillation Mixed hyperlipidemia Hypertension Family History Family history of problems with anesthesia: No Surgical History History of Problems with Anesthesia: No Social History Social History Alcohol intake: current Alcohol intake frequency: 0-2 drinks per day Alcohol type: beer Patient Tobacco Use Status: Never used Tobacco Use of substances other than those prescribed or required for medical reasons: No Are you DNR?: No Advance Directives: No Advance Directives Information Provided: Yes service: No Meds Allergies Allergy/AdvReac Type Severity Reaction Status Date / Time No Known Allergies Allergy Verified 03/15/24 12:15 Home Medications ?Medication ?Instructions ?Recorded ?Confirmed ?Last Taken ?Type hydrochlorothiazide 25 mg tablet 25 mg PO DAILY 02/02/24 03/15/24 03/15/24 History nifedipine 60 mg tablet,extended 60 mg PO DAILY 02/02/24 03/15/24 03/15/24 History release 24 hr simvastatin 40 mg tablet 40 mg PO DAILY 02/02/24 03/15/24 03/15/24 History Exam Exam Date and Time: March 15, 2024 1322 Height,Weight and Vital Signs: Height 5 ft 10 in Weight 77.564 kg Vital Signs Temperature 98.0 F 03/15/24 12:19 Pulse Rate 81 03/15/24 12:19 Respiratory Rate 18 03/15/24 12:19 Blood Pressure 118/74 03/15/24 12:19 Pulse Oximetry 97 03/15/24 12:19 Oxygen Delivery Method Room Air 03/15/24 12:19 Temperature 98.0 F 03/15/24 12:19 Pulse Rate 81 03/15/24 12:19 Respiratory Rate 18 03/15/24 12:19 Blood Pressure 118/74 03/15/24 12:19 Pulse Oximetry 97 03/15/24 12:19 Oxygen Delivery Method Room Air 03/15/24 12:19 Airway Mallampati Class: I TM Dist: >3cm Neck ROM: Full Loose/Missing/Broken Teeth: No (Patient has 2 teeth on bottom jaw. Left dentures at home. Denies anything loose or broken for remaining teeth.) Heart: S1S2 Lungs: CTAB Assessment and Plan Assessment Anesthesia Assessment: Anesthesia Plan Discussed and Chart Reviewed Final Anesthetic Review Family History of Problems with Anesthesia: No History of Problems with Anesthesia: No NPO: Yes ASA Class: II Final Preanesthetic Review: No Changes in Pt Med Stat, Meds/Allgs Chart Reviewed, Consent Obtained/Reviewed and Anes Risks/Benef Reviewed Patient Risk: Low Procedure Risk: Low Anesthetic Plan Anesthetic Plan: MAC: and Agree w/ Assess. and Plan Disposition: Standard PACU
--- NOTE | 2024-03-15 13:59 | MHC.SHP ---
Pre-Procedural Eval Section A - 24 Hr Update-Section A only Date of Service: 03/15/24 Section B - Complete if H&P > 30 days Chief Complaint: Unspecified atrial fibrillation Allergies: Allergies Allergy/AdvReac Type Severity Reaction Status Date / Time No Known Allergies Allergy Verified 03/15/24 12:15 Plan Diagnosis/Plan: Unchanged I have reviewed the history and physical and performed a pertinent physical examination on my patient. No changes have occurred unless specified. Time Spent With Patient Time: Total time managing care of this patient today ____ minutes.
[2024-03-15 14:16] VITALS: BP 112/66; PULSE 69; RESP 22; TEMP 36.1; O2SAT 96
[2024-03-15 14:20] VITALS: BP 110/63; PULSE 54; RESP 18; O2SAT 96
[2024-03-15 14:25] VITALS: BP 117/71; PULSE 78; RESP 18; O2SAT 97
[2024-03-15 14:30] VITALS: BP 113/64; PULSE 55; RESP 16; O2SAT 97
--- NOTE | 2024-03-15 14:37 | HO.CARDIVERS ---
Cardioversion Procedure Note Cardioversion Date of Procedure: 03/15/24 Ordering Provider: Marito Malhotra Performing Provider: Marito Malhotra Indication for Procedure: Afib Performed with Transesophageal Echo: No History: 74 with moderate MR and Afib. Consent: Verbal and Written consent was obtained from the patient before starting. The patient was made aware of the risk of stroke, skin burn and arrhythmia Procedure: After consent obtained, defib pads were attached and the patient was sedated by the anesthesia team. Once adequate sedation achieve the patient was given 200 joules synchronized shock. After that he converted to sinus rhythm but there was clearly a lot of irregularity and we were unsure whether he is in atrial fibrillation or not. He was given a 2nd shock and rhythm appeared to be sinus after that with a lot of PACs and low voltage P-waves. We decided to end the procedure and do an EKG to confirm whether he is in sinus rhythm. EKG confirmed NSR with PACs and NSVT. Recommendations: Continue Eliquis. Stop the digoxin. Start Amiodarone 400 mg twice a day x 2 weeks, after 2 weeks change to 200 mg daily.
[2024-03-15 14:45] VITALS: BP 110/71; PULSE 77; RESP 16; TEMP 36.1; O2SAT 97
== END 2024-03-15 14:53 | disposition home or self-care (01) ==
PROVIDERS: PCP Internal Medicine; Visit Provider Internal Medicine Cardiovascular Disease
PROC: 5A2204Z Restoration of Cardiac Rhythm, Single (ICD-10-PCS; principal; 2024-03-15 13:30)
DX: I48.91 Unspecified atrial fibrillation (principal); I10 Essential (primary) hypertension; E78.2 Mixed hyperlipidemia; Z79.01 Long term (current) use of anticoagulants; Z79.899 Other long term (current) drug therapy
CPT/HCPCS: 92960; 93005

== ENCOUNTER → 2024-03-15 11:51 | Outpatient (BNV) | payer OTHER, SELFPAY | PROVIDERS: PCP Internal Medicine; Visit Provider Internal Medicine Cardiovascular Disease | DX: I48.91 Unspecified atrial fibrillation (principal); R94.31 Abnormal electrocardiogram [ECG] [EKG] | CPT/HCPCS: 92960; 93010 ==

== ENCOUNTER 2025-04-25 09:14 | Outpatient (AMB) | payer OTHER, SELFPAY ==
[2025-04-25 09:37] VITALS: BP 116/56; PULSE 55; BMI 24.3
--- NOTE | 2025-04-25 09:37 | A.OFFVIS_ITS ---
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 His last prior visit was 03/08/2024. Today he reports he has been feeling very well with no concerning symptoms. He denies chest discomfort, shortness of breath, heart palpitations, lightheadedness, edema. He reports good activity tolerance. He takes his medications as directed. No bleeding issues reported. He no longer drinks alcohol daily. He tells me he drinks 1 beer 2 to 3 times a week. [facility] Medical History Hypertension Atrial fibrillation Mixed hyperlipidemia Social History Alcohol intake: current Alcohol intake frequency: 0-2 drinks per day Alcohol type: beer Patient Tobacco Use Status: Never used Tobacco service: No Review of Systems Const All systems reviewed & are unremarkable except as noted in HPI and below Denies daytime sleepiness, Denies difficulty sleeping, Denies snoring, Denies stops breathing during sleep and Denies weakness Card Denies chest pain, Denies rapid heart rate, Denies irregular heart rhythm, Denies claudication, Denies leg edema, Denies lightheadedness, Denies palpitations, Denies dyspnea, Denies dyspnea on exertion, Denies orthopnea, Darrick es paroxysmal nocturnal dyspnea and Denies slow heart rate Resp Denies cough, Denies dyspnea, Denies dyspnea on exertion and Denies snoring GI Reports no additional complaints, Denies hematochezia, Denies change in stool character and Denies dyspepsia Musc Denies abnormal gait, Denies muscle weakness and Denies numbness Neuro Denies abnormal gait, Denies numbness and Denies weakness Endo Denies palpitations Physical Exam Vital Signs: Last Vital Signs Pulse 55 04/25/25 09:37 BP 116/56 L 04/25/25 09:37 BMI result Body Mass Index 24.3 Const General: cooperative, healthy appearing, comfortable and no acute distress Orientation/consciousness: patient oriented x3 Neck Neck: Yes normal visual inspection and Yes no JVD Carotids: normal carotid upstroke Chest Chest palpation & inspection: normal inspection of the chest Resp Effort & Inspection: normal respiratory effort Auscultation: clear to auscultation bilaterally, no crackles, no rales, no rhonchi and no wheezes Cardio Jugular venous distension: no JVD Rate: regular rate Rhythm: regular rhythm Heart sounds: S1 normal heart sound present, S2 normal heart sound present, no gallops, no murmurs and no rubs Neuro General: patient oriented x3 Extrem General: Yes normal to inspection, No no pedal edema and No calf tenderness Psych Appearance: grossly normal Mental Status: mental status grossly normal Speech and movement: Normal speech and movement present Office Procedures EKG Details: Today, read by me, sinus bradycardia, prolonged QT, QTC 493 millisecond with no significant change from last QTC, rate 55. [id number], Complete Assessment & Plan Assessment & Plan (1) Atrial fibrillation: Code(s): I48.91 - Unspecified atrial fibrillation Category: Medical Plan: History of paroxysmal atrial fibrillation treated with rhythm control. He did have cardioversion 03/15/2024. No known recurrent atrial fibrillation since that time. EKG today showing sinus rhythm, rate 55, QTC 493 milliseconds which is no significant change from prior. He continues on amiodarone 200 mg daily, metoprolol XL 100 mg daily. He is on Eliquis for anticoagulation. Will update labs today including CBC, CMP, TSH. Cardiology follow-up 6 months, sooner if needed. (2) Mixed hyperlipidemia: Code(s): E78.2 - Mixed hyperlipidemia Category: Medical Plan: [place] LDL goal less than 100. Lipids followed by his PCP. Continue simvastatin. (3) Mitral regurgitation: Code(s): I34.0 - Nonrheumatic mitral (valve) insufficiency Category: Medical Plan: Last echo 02/03/2024 showed EF 55-60%, left atrium moderately dilated, [id number] mitral regurgitation. Will update echo to reassess MR prior to next visit. (4) Hypertension: Code(s): I10 - Essential (primary) hypertension Category: Medical Plan: Blood pressure goal less than 130/80. Well controlled at this time. Continue metoprolol, hydrochlorothiazide and nifedipine. Plan I discussed with the patient the importance of continuing his current medications, amiodarone, metoprolol and Eliquis, for managing atrial fibrillation. We talked about the need for regular blood work to monitor these medications' effects. I also explained the plan to monitor his mitral valve insufficiency with a follow-up echocardiogram before his next visit. The patient was advised to return for a follow-up in six months. Orders: Orders Comprehensive Met. Panel Today E78.2 - Mixed hyperlipidemia, I48.91 - Unspecified atrial fibrillation Complete Blood Count Auto Diff Today E78.2 - Mixed hyperlipidemia, I48.91 - Unspecified atrial fibrillation TSH reflex Free T4 Today E78.2 - Mixed hyperlipidemia, I48.91 - Unspecified atrial fibrillation CA echo transthoracic complete 10/14/25 I34.0 - Nonrheumatic mitral (valve) insufficiency, I48.91 - Unspecified atrial fibrillation Lipid Panel Today E78.2 - Mixed hyperlipidemia, I48.91 - Unspecified atrial fibrillation Medications: New amiodarone 200 mg PO DAILY 90 tabs 1RF Refilled apixaban (Eliquis) 5 mg PO BID 180 tabs 1RF Patient Instructions: - Continue taking amiodarone, metoprolol and Eliquis as prescribed. - Go to the lab for blood work today. - Schedule an echocardiogram before your next visit. - Follow up in six months. Patient was informed and verbally consented to the use of an ambient scribe for clinic note documentation during this visit. Visit time spent on chart review, interview, assessment, orders, documentation. Coding Level of Care Code Est Pt Level 4 (93303) Complex EM visit Add On G2211 Diagnoses Atrial fibrillation I48.91 Mixed hyperlipidemia E78.2 Mitral regurgitation I34.0 Hypertension I10 CPT Codes EKG - CPT: 74167-[id number], Complete ([id number]) Time Spent (min) 32
== END 2025-04-25 10:09 | disposition home or self-care (01) ==
LOC: HO.HCS 09:15
PROVIDERS: PCP Internal Medicine; Visit Provider Nurse Practitioner Family
DX: I48.91 Unspecified atrial fibrillation (principal); E78.2 Mixed hyperlipidemia; I34.0 Nonrheumatic mitral (valve) insufficiency; I10 Essential (primary) hypertension
CPT/HCPCS: 93010; 99214; G2211

== ENCOUNTER 2025-04-25 09:14 | Outpatient (REF) | payer OTHER, SELFPAY ==
[2025-04-25 10:28] LABS: MANUAL DIFF FLAG NO
[2025-04-25 11:11] LABS: Hematocrit 43.4 % (42.0-52.0); Hemoglobin 14.5 g/dl (14.0-18.0); Imm Gran Abs Auto 0.03 X10*3/uL (0.00-0.03); Imm Gran Pct Auto 0.5 % (0.0-0.4); Lymphocytes Absolute Auto 1.9 X10*3/uL (1.2-4.9); Mean Corpuscular HGB Conc 33.4 g/dl (31.0-36.0); Mean Corpuscular Hemoglobin 29.7 pg (27.0-33.0); Mean Corpuscular Volume 88.8 fL (80.0-98.0); NRBC Abs Auto 0.000 X10*3/uL (0.0-0.012); NRBC Pct Auto 0.0 /100WBC (0.0-0.2); Platelet Count 224 X10*3/uL (160-400); Red Blood Count 4.89 X10*6/uL (4.60-5.80); White Blood Count 6.2 X10*3/uL (4.8-10.8)
[2025-04-25 11:58] LABS: Alanine Aminotransferase 35 U/L (0-40); Albumin Level 4.8 g/dL (3.5-5.0); Alkaline Phosphatase 72 U/L (39-117); Anion Gap 14 (12-20); Aspartate Amino Transferase 35 U/L (5-37); Blood Urea Nitrogen 13 mg/dL (9-16); Calcium 9.4 mg/dL (8.4-10.2); Carbon Dioxide 29 mmol/L (22-29); Chloride 102 mmol/L (96-108); Cholesterol 159 mg/dL (<200); Estimated Glomerular Filt Rate > 60; HDL Cholesterol 43 mg/dL (>40); Potassium 3.5 mmol/L (3.3-5.1); Sodium 141 mmol/L (135-145); Total Protein 7.4 g/dL (6.5-8.0); Triglycerides 144 mg/dL (<150)
== END 2025-04-25 09:15 | disposition home or self-care (01) ==
LOC: HO.LAB 09:14
PROVIDERS: PCP Internal Medicine; Visit Provider Nurse Practitioner Family
DX: I48.91 Unspecified atrial fibrillation (principal); E78.2 Mixed hyperlipidemia; I34.0 Nonrheumatic mitral (valve) insufficiency; I10 Essential (primary) hypertension; Z79.899 Other long term (current) drug therapy; Z79.01 Long term (current) use of anticoagulants
CPT/HCPCS: 36415; 80053; 80061; 84443; 85025; 93005; 99212